=== PATIENT | female | born 1945 | race African-American/Black ===

== ENCOUNTER 2025-08-14 22:11 | Emergency (ER) | payer OTHER ==
[~2025-08-14] VITALS: Ht 170.2 cm; Wt 68.0 kg
[2025-08-14 22:12] VITALS: O2SAT 100
[2025-08-14] MEDS: IBUPROFEN 800MG TABLET PO ONE (23:46)
[2025-08-14] MEDS: ONDANSETRON 4MG ODT PO ONE (23:47)
[2025-08-14] MEDS: ACETAMINOPHEN 500MG TABLET PO ONE (23:47)
[2025-08-15] MEDS ORDERED: ONDA-239 PO (00:15)
[2025-08-15 00:34] VITALS: BP 142/71; PULSE 72; RESP 14; TEMP 36.8; O2SAT 100
[2025-08-15] MEDS: ACETAMINOPHEN 500MG TABLET PO NR (00:34)
== END 2025-08-15 00:40 | disposition home or self-care (01) ==
LOC: ER 22:11
DX: R11.2 Nausea with vomiting, unspecified (principal); R51.9 Headache, unspecified; E03.9 Hypothyroidism, unspecified
CPT/HCPCS: 99283; Q0162